=== PATIENT | female | born 1990 | race Hispanic/Latino ===

== ENCOUNTER 2021-09-11 01:44 | Inpatient (IN) | payer BC, OTHER ==
[~2021-09-11] VITALS: Ht 165.1 cm; Wt 100.2 kg
[2021-09-11] MEDS ORDERED: PRENATAL MULTI1 EAC3 PO (02:55)
--- NOTE | 2021-09-11 09:03 | PR ---
[facility] [address] [facility] [address] [place] [address] Signed PP Progress Notes Datetime Report Generated by CPN: 09/11/2021 09:03 SUBJECTIVE: [id number] Pain: Within Normal Limits Nausea/Vomiting: Denies Vital Signs: [id number] Vital Signs: Reviewed; Within Normal Limits EXAM: Met Abdomen/Uterus: Normal Lochia: Normal Extremities: Normal IMPRESSION/PLAN/PROCEDURES: [id number] Impression: Normal Progression Plan: Continue Present Management Procedures: None Progress Notes: Doing well without complaint, eating and moving without difficulty. Signing Physician: Woody Mooney MD Copies: ~ *Electronically Signed* 09/11/21902 WOODY MOONEY MD PATIENT NAME: VALERIE ESCALANTE PROGRESS NOTE DATE OF : 89 PHYSICIAN: WOODY MOONEY MD RPT #: [id number] REPORT IS CONFIDENTIAL AND NOT TO BE RELEASED WITHOUT AUTHORIZATION
--- NOTE | 2021-09-13 12:27 | PR ---
[facility] [address] [facility] [place] [address] Signed PP Progress Notes Datetime Report Generated by CPN: 09/13/2021 12:27 SUBJECTIVE: [id number] Pain: Within Normal Limits Nausea/Vomiting: Denies Vital Signs: [id number] Vital Signs: Reviewed; Within Normal Limits Notable Details: PP Hgb/Hct = 10.7/32.5 EXAM: Met Abdomen/Uterus: Normal Lochia: Normal Extremities: Normal IMPRESSION/PLAN/PROCEDURES: [id number] Impression: Normal Progression Plan: Discharge Procedures: None Progress Notes: Doing well, without complaint, ready to go home. Signing Physician: Woody Mooney MD Copies: ~ *Electronically Signed* 09/13/21 1227 WOODY MOONEY MD PATIENT NAME: VALERIE ESCALANTE PROGRESS NOTE DATE OF : 91 PHYSICIAN: WOODY MOONEY MD RPT #: [id number] REPORT IS CONFIDENTIAL AND NOT TO BE RELEASED WITHOUT AUTHORIZATION
== END 2021-09-13 14:28 | disposition home or self-care (01) | DRG 807 ==
LOC: FBCO 01:44 → FBC 02:13
PROVIDERS: ADMIT General Practice; ATTEND General Practice
PROC: 10E0XZZ Delivery of Products of Conception, External Approach (ICD-10-PCS; principal; 2021-09-11)
DX: O99.824 Streptococcus B carrier state complicating childbirth (principal); Z37.0 Single live birth; Z3A.41 41 weeks gestation of pregnancy; O77.0 Labor and delivery complicated by meconium in amniotic fluid; O99.214 Obesity complicating childbirth; Z90.89 Acquired absence of other organs; Z88.0 Allergy status to penicillin; Z79.899 Other long term (current) drug therapy
CPT/HCPCS: 36415; 85027; 86850; 86900; 86901; A9270; J0690; J2590; J7121; U0003

== ENCOUNTER 2024-07-10 01:17 | Inpatient (IN) | payer BC, OTHER ==
[~2024-07-10] VITALS: Ht 165.1 cm; Wt 107.5 kg
[~2024-07-10 01:17] MED LIST: PRENATAL MULTI1 EAC3 PO
[2024-07-10 01:55] LABS: HEMATOCRIT 37.6 % (35.0-50.0); HEMOGLOBIN 13.1 g/dL (12.0-18.0); MCH 28.8 (27-36); MCHC 34.8 g/dl (30-36); MCV 82.9 fl (81-99); RBC 4.54 M/ul (4.3-5.7)
[2024-07-10] MEDS ORDERED: MAGNESIUM HYDROXIDE/AL HYDROX 30 ML CUP PO PRN (02:00)
[2024-07-10] MEDS ORDERED: CALCIUM CARBONATE 500 MG CHEW PO PRN (02:00)
[2024-07-10] MEDS ORDERED: LACTATED RINGER'S 1,000 ML IV PRN (02:00)
[2024-07-10] MEDS ORDERED: LACTATED RINGER'S 1,000 ML IV SCH (02:00)
[2024-07-10] MEDS ORDERED: OXYTOCIN/DEXTROSE 5% 20 UNITS/100 ML BAG IV SCH (02:00)
[2024-07-10 02:17] VITALS: BP 128/60
[2024-07-10 02:23] LABS: ABO A; ANTIBODY SCREEN NEGATIVE; RH POSITIVE
[2024-07-10 03:21] LABS: AMPHETAMINES, URINE NEGATIVE (NEGATIVE); BARBITURATES, URINE NEGATIVE (NEGATIVE); BENZODIAZEPINE, URINE NEGATIVE (NEGATIVE); BUPRENORPHINE, URINE NEGATIVE (NEGATIVE); CANNABINOID, URINE NEGATIVE (NEGATIVE); COCAINE, URINE NEGATIVE (NEGATIVE); ECSTASY, URINE NEGATIVE (NEGATIVE); FENTANYL, URINE NEGATIVE (NEGATIVE); METHADONE, URINE NEGATIVE (NEGATIVE); OPIATES, URINE NEGATIVE (NEGATIVE); OXYCODONE, URINE NEGATIVE (NEGATIVE); PHENCYCLIDINE, URINE NEGATIVE (NEGATIVE)
[2024-07-10] MEDS ORDERED: OXYTOCIN/0.9 % SODIUM CHLORIDE 500 ML IV SCH ×2 (10:15→15:15)
[2024-07-10] MEDS ORDERED: WITCH HAZEL/GLYCERIN 1 EA PAD TOP PRN (15:15)
[2024-07-10] MEDS ORDERED: BENZOCAINE 60 ML AEROSOL TOP PRN (15:15)
[2024-07-10] MEDS ORDERED: IBUPROFEN 600 MG TAB PO PRN (15:15)
[2024-07-10] MEDS ORDERED: MAGNESIUM HYDROXIDE 30 ML UDC PO PRN (15:15)
[2024-07-10] MEDS ORDERED: LIDOCAINE 2% VISCOUS 6 ML SYR TOP ONE (15:15)
[2024-07-10] MEDS ORDERED: ACETAMINOPHEN 325 MG TAB PO PRN (15:15)
[2024-07-10] MEDS ORDERED: HYDROCORTISONE ACETATE 25 MG SUPP PR PRN (15:15)
[2024-07-10] MEDS ORDERED: OXYCODONE HCL 5 MG TAB PO PRN (18:30)
[2024-07-10] MEDS ORDERED: SENNOSIDES/DOCUSATE 1 EA TAB PO SCH (21:00)
== END 2024-07-11 17:40 | disposition home or self-care (01) | DRG 807 ==
LOC: FBCO 01:17 → FBC 01:34
PROVIDERS: ADMIT Obstetrics & Gynecology; ATTEND Obstetrics & Gynecology
PROC: 10E0XZZ Delivery of Products of Conception, External Approach (ICD-10-PCS; principal; 2024-07-10)
DX: O48.0 Post-term pregnancy (principal); Z37.0 Single live birth; O77.0 Labor and delivery complicated by meconium in amniotic fluid; O99.214 Obesity complicating childbirth; O69.81X0 Labor and delivery complicated by cord around neck, without compression, not applicable or unspecified; Z3A.40 40 weeks gestation of pregnancy; Z88.0 Allergy status to penicillin; Z88.8 Allergy status to other drugs, medicaments and biological substances; Z90.49 Acquired absence of other specified parts of digestive tract; Z90.89 Acquired absence of other organs
CPT/HCPCS: 36415; 80307; 85027; 86850; 86900; 86901; A9270; J7121